=== PATIENT | female | born 1950 | race Caucasian/White ===

== ENCOUNTER 2019-04-30 21:38 | Inpatient (IN) | payer MEDICARE, BC ==
[~2019-04-30] VITALS: Ht 167.6 cm; Wt 134.3 kg
[2019-04-30] MEDS ORDERED: INDERAL 40 MG T40 MG PO (21:41)
[2019-04-30] MEDS ORDERED: LASIX40 MG PO (21:41)
[2019-04-30] MEDS ORDERED: CELEBREX200 MG PO (21:42)
[2019-04-30] MEDS ORDERED: NORVASC2.5 MG PO (21:42)
[2019-04-30 21:58] LABS: BASOPHILS 0.3 % (0-2); EOSINOPHILS 1.5 % (0-7); HEMATOCRIT 44.6 % (36.0-48.0); IMMATURE GRANULOCYTES 0.3 % (0-5); MCH 31.3 pg (26.0-34.0); MCHC 33.6 g/dL (31.0-37.0); MCV 93.1 fL (80.0-100.0); MEAN PLATELET VOLUME 9.5 fL (7.4-10.4); MONOCYTES 12.2 % (2-11); NEUTROPHILS 74.7 % (40-80); PLATELET COUNT 154 10x3/uL (130-400); RBC 4.79 10x6/uL (4.00-5.40); RDW 13.7 % (11.5-14.5); WBC 9.4 10x3/uL (4.8-10.8)
[2019-04-30 22:09] LABS: APTT 26.6 SECONDS (22.8-39.4); INR 1.14 (0.85-1.17); PROTIME 14.1 SECONDS (11.6-15.0)
[2019-04-30 22:11] LABS: D-DIMER-QUANTITATIVE 3.67 ug/mLFEU (0.20-0.54)
[2019-04-30 22:15] LABS: CALC OSMOLALITY 283 mosm/kg (275-300); CALCIUM 9.2 mg/dL (8.5-10.1); CARBON DIOXIDE 31.9 mmol/L (21.0-32.0); CHLORIDE - SERUM 105 mmol/L (98-107); CREATININE - SERUM 0.9 mg/dL (0.6-1.3); GLUCOSE 114 mg/dL (74-106); POTASSIUM - SERUM 4.2 mmol/L (3.5-5.1); SODIUM 141 mmol/L (136-145); UREA NITROGEN 18 mg/dL (7-18); eGFR NON AFRICAN AMERICAN 66 mL/min (90-120)
[2019-04-30 22:26] LABS: ALBUMIN 3.5 g/dL (3.4-5.0); ALKALINE PHOSPHATASE 73 U/L (46-116); ALT (SGPT) 21 U/L (10-68); AMYLASE - SERUM 44 U/L (25-115); BILIRUBIN - TOTAL 1.06 mg/dL (0.2-1.3); CREATINE KINASE 35 UL (21-215); LIPASE 179 U/L (73-393); PRO BNP 299 pg/mL (0-125)
[2019-04-30 22:27] VITALS: BP 140/61
[2019-04-30 22:27] LABS: TROPONIN-I < 0.017 ng/mL (0.000-0.060)
--- NOTE | 2019-04-30 22:30 | NUR ---
AFTER WALKING TO BATHROOM PT IS SOB AND O2 SAT IS 88% ON RA. RT AT BEDSIDE FOR TREATMENT.
--- NOTE | 2019-04-30 22:37 | NUR ---
PT TAKEN TO CT.
[2019-04-30 22:45] VITALS: BP 145/79
--- NOTE | 2019-04-30 22:56 | NUR ---
PT BACK FROM CT TOLERATED WELL.
[2019-04-30 23:00] VITALS: BP 146/66
[2019-04-30 23:04] LABS: APPEARANCE HAZY (CLEAR); BILIRUBIN NEGATIVE (NEGATIVE); COLOR YELLOW (YELLOW); GLUCOSE NEGATIVE (NEGATIVE); KETONE SMALL mg/dL (NEGATIVE); NITRITE NEGATIVE (NEGATIVE); PROTEIN NEGATIVE (NEGATIVE); SPECIFIC GRAVITY 1.015 (1.005-1.020); UROBILINOGEN NORMAL (NORMAL)
[2019-05-01] VITALS (8 sets, daily range): BP systolic 114–152; BP diastolic 47–72; BMI 47.9
--- NOTE | 2019-05-01 01:00 | NUR ---
RECEIVED FROM ER, PT IS A&OX4, IV-RFA-SL, MEDS AND HISTORY COMPLETE, PLACED ON TELEMTRY-SR, BED IS LOW, SRX2, CALL LIGHT IN REACH, WILL CONTINUE PLAN OF CARE
--- NOTE | 2019-05-01 07:39 | NUR ---
PT AWAKE AND ORIENTED. SON AT BEDSIDE. NO COMPLAINTS OR CONCERNS. STATES SHE'S IN NO PAIN AT THIS TIME. ALL QUESTIONS ANSWERED TO THE BEST OF MY ABILITY. CL IN REACH, SRX2.
--- NOTE | 2019-05-01 11:27 | NUR ---
I have reviewed this patient and I concur with the Shift Assessment completed by the Licensed Practical Nurse today this shift.
--- NOTE | 2019-05-01 18:30 | NUR ---
PT AWAKE AND ORIENTED, STATES SHE'S FEELING BETTER THAN YESTERDAY AND KNOWS THAT TOMORROW WILL BE BETTER THAN TODAY. NO COMPLAINTS OR CONCERNS VOICED AT THIS TIME, NO FAMILY PRESENT AT BEDSIDE. PT STATES HER DAUGHTER BROUGHT HER HOME CPAP WHICH SHE USES FOR SLEEP. PT STATES THAT SHE DID NOT SLEEP WELL LAST NIGHT AND IS HOPING TO GET ADAQUET REST THIS EVENING. CL IN REACH, SRX2.
--- NOTE | 2019-05-01 19:15 | NUR ---
RECEIVED REPORT, WILL ASSUME CARE OF PT, COMPLAINS OF PAIN, WILL GIVE MORPHINE ORDERED, ASKING IF LOVENOX HAS BEEN CHANGED TO 2100 AND 0900 SO PT WOULDNT BE WOKE UP, I WILL CHANGE PER PT REQUEST, ALSO ASKING FOR DRESSING BE PLACED ON ACOSTA TEAR TO RAC, PROVIDED, DAUGHTER AT BEDSIDE, BED IS LOW, SRX2, CALL LIGHT IN REACH, WILL CONTINUE PLAN OF CARE
[2019-05-02 04:38] VITALS: BP 128/44
--- NOTE | 2019-05-02 06:45 | NUR ---
REPORT RECEVIED. SHE IS ALERT. DENIES ANY CURRENT CHEST PAIN OR PAIN. O2 ON AT 2 L/M PER N/C. RESP EVEN WITHOUT LABOR. SALINE LOCK INTACT TO RIGHT FOREARM. DAUGHTER AT BEDSIDE. BED IS LOCKED AND IN LOWEST POSITION. CAREPLAN REVIEW DONE WITH SAFETY PRECAUTIONS IN PLACE.
[2019-05-02 09:25] VITALS: BP 137/46
--- NOTE | 2019-05-02 11:12 | EC ---
PATIENT:VALERIE LYNN DATE OF SERVICE: 05/01/19 SEX: F MEDICAL RECORD: [id number] DATE OF : [birth year] LOCATION:D.M2 D.210 AGE OF PATIENT: 68 ADMISSION DATE: 05/01/19 REFERRING PHYSICIAN: INTERPRETING PHYSICIAN: VERONICA HOOKER MD ECHOCARDIOGRAM REPORT ECHO CHARGES 4 ECHO COMPLETE Date: 05/01/19 CLINICAL DIAGNOSIS: SOB ECHOCARDIOGRAPHIC MEASUREMENTS (adult normal given) AC root (d.<3.7cm) 2.8 cm LV Septum d (<1.2 cm> 1.1 cm Valve Excursion 1.8 cm LV Septum (systole) 1.5 cm Left Atria (s.<4.0cm> 3.3 cm LVPW d(<1.2cm) 1.4 cm RV (d.<2.3cm) 3.6 cm LVPW (sytole) 1.5 cm LV diastole(<5.6CM) 5.2 cm MV E-F(>70mm/sec) cm LV systole 4.3 cm LVOT Diameter 1.6 cm MV exc.(>10mm) cm Est.ejection fraction (50-75%) % DOPPLER: LVIT cm/sec A 78 cm/sec E 81 cm/sec LA cm/sec RVSP 42.4 mmHg LVOT 180 cm/sec AOP1/2T m/s Asc. Ao 234 cm/sec RVOT 95 cm/sec RA cm/sec PA 159 cm/sec AV Gradient Peak 21.8 mmHg AV Mean 12.4 mmHg AV Area 1.4 cm MV Gradient Peak 3.7 mmHg MV Mean 2.3 mmHg MV Area cm COMMENTS: Content Strategist: Tico HERNANDEZ Flight Attendant Inflight Services: [address] Dr. [place] TAPE# PACS Pericardial Effusion Y DATE OF SERVICE: Adequate 2D, color flow, spectral Doppler, and M-mode. Borderline LVH. LV internal dimensions are normal. Wall motion is normal. EF is greater than or equal to 55%. Aortic valve sclerosis without stenosis by Doppler interrogation. Left atrium is normal at 3.3 cm. Mitral valve shows no prolapse. Trace TR. Right-sided chambers appear normal. There is mild MR. Note is made of qibun-bq-fctxzxmr pericardial effusion of no hemodynamic significance. ECHOCARDIOGRAM REPORT [id number] VALERIE LYNN TRANSINT:[id number] Voice Confirmation ID: [id number] DOCUMENT ID: [id number] VERONICA HOOKER MD at 1112 CC: [id number] DICTATION DATE: 05/02/19832 EARLY CHILDHOOD EDUCATION INSTRUCTOR: 05/02/19 1025 ADM IN [place] [id number] [place] [address]
[2019-05-02 12:00] VITALS: BP 130/50
[2019-05-02 14:17] VITALS: BMI 47.7
--- NOTE | 2019-05-02 14:55 | MORECARE ---
CASE MANAGEMENT DISCHARGE SUMMARY PATIENT: VALERIE LYNN UNIT: [id number] ADM DATE: 04/30/19 AGE: 68 : 48 SEX: F ROOM/BED: D.6585 AUTHOR: SVEN LACEY PHYSICIAN: REFERRING PHYSICIAN: KORTNEY STRANGE MD DATE OF SERVICE: 05/02/19 Discharge Plan Patient Name: VALERIE LYNN Facility: [facility]:[place] : 1950 Planned Disposition: Home or Self Care Anticipated Discharge Date: Discharge Date: Expected LOS: Initial Reviewer: [email or web address] Initial Review Date: 05/02/2019 Generated: 05/02/19 3:55 pm Comments DCP- Discharge Planning Updated by [email or web address]: Mone Calhoun on 05/02/19 1:[address] Patient Name: VALERIE LYNN Admission Status: ER Accout number: [id number] Admission Date: 04-30-2019 : 1950 Admission Diagnosis: Attending: KORTNEY STRANGE Current LOS: 2 Anticipated DC Date: Planned Disposition: Home or Self Care Primary Insurance: MEDICARE A & B Discharge Planning Comments: CM MET WITH PATIENT TO DISCUSS DC PLANNING/NEEDS AFTER OBTAINING VERBAL CONSENT. PLANS TO DC TO HOME. STATES DOCTOR MENTIONED SOMETHING ABOUT HAVING HER CPAP CHECKED. I WILL TALK TO RT ABOUT THIS. DENIES NEED FOR HH, REHAB OR EQUIPMENT AT THIS TIME. CM WILL FOLLOW AND ASSIST. Financial Adviser: Mone Calhoun DCPIA - Discharge Planning Initial Assessment Updated by [email or web address]: Mone Calhoun on 05/02/19 2:49 pm * Is the patient Alert and Oriented? Yes * PCP LEEROY * Pharmacy [facility] * Preadmission Environment Home Alone * ADLs Independent * Equipment CPAP * List name and contact numbers for known caregivers / representatives who currently or will assist patient after discharge: VIC, DAUGHTER * Community resources currently utilized None * Additional services required to return to the preadmission environment? No * Can the patient safely return to the preadmission environment? Yes * Has this patient been hospitalized within the prior 30 days at any hospital? No Patient Name: VALERIE LYNN Page [phone] at 1455 All edits/amendments must be made on the electronic document DICTATION DATE: 05/02/191454 MANAGER LIFE SCIENCES: ODESSA 05/02/191454 RPT#: [id number] DC DATE: STATUS: ADM IN [facility] [address] [place] [address] END OF REPORT
[2019-05-02 16:00] VITALS: BP 137/61
[2019-05-02 20:48] VITALS: BP 110/77
--- NOTE | 2019-05-02 21:45 | NUR ---
REPORT RECIEVED AND ROUNDING COMPLETE. PATIENT LAYING IN BED IN LOW FOWLERS. PATIENT'S DAUGHTER AT BEDSIDE. PATIENT STATES "PLEASE DONT COME IN MY ROOM UNLESS I CALL YOU I WOULD LIKE TO GET SOME SLEEP TONIGHT" ASSESSMENT COMPLETE. PATIENT SHOWING NO S/SX OF DISTRESS AT THIS TIME. PATIENT HAS A RIGHT FOREARM PIV THAT IS SALINE LOCKED AT THIS TIME. PATINET IS A&O X4. PATIENT IS HAS 02 AT 2L VIA NASAL CANNULA. PATIENT HAS A C-PAP TO WEAR AT NIGHT BUT STATES SHE ISNT MESSING WITH IT TONIGHT. PATIENT STATES SHE HAS NO NEEDS A THIS TIME. CALL LIGHT WITHIN REACH AND BED IN LOWEST LOCKED POSITION.
[2019-05-03 04:30] VITALS: BP 134/55
[2019-05-03 05:39] LABS: BASOPHILS 0.1 % (0-2); EOSINOPHILS 0 % (0-7); HEMATOCRIT 38.3 % (36.0-48.0); IMMATURE GRANULOCYTES 0.3 % (0-5); LYMPHOCYTES 8.9 % (15-50); MCH 30.8 pg (26.0-34.0); MCHC 33.9 g/dL (31.0-37.0); MCV 90.8 fL (80.0-100.0); MEAN PLATELET VOLUME 10.1 fL (7.4-10.4); MONOCYTES 6.8 % (2-11); NEUTROPHILS 83.9 % (40-80); PLATELET COUNT 184 10x3/uL (130-400); RBC 4.22 10x6/uL (4.00-5.40); RDW 13.1 % (11.5-14.5); WBC 10.8 10x3/uL (4.8-10.8)
[2019-05-03 06:21] LABS: ANION GAP 10.3 mmol/L (8-16); CALCIUM 8.7 mg/dL (8.5-10.1); CREATININE - SERUM 0.9 mg/dL (0.6-1.3); POTASSIUM - SERUM 3.3 mmol/L (3.5-5.1)
--- NOTE | 2019-05-03 06:55 | NUR ---
REPORT RECEIVED. SHE IS ALERT ABLE TO VOICE NEEDS DAUGHTER AT BEDSIDE. RESP EVEN WITHOUT LABOR, O2 IS OFF. SHE OFFERS NO C/O AT THIS TIME. BED IN LOWEST POSITION AND LOCKED. CAREPLAN REVIEW DONE WITH SAFETY PRECAUTIONS IN PLACE. CL IN REACH.
[2019-05-03 08:00] VITALS: BP 129/57
[2019-05-03 10:10] LABS: ACLA - IGG AB <9 GPL U/mL (0-14); ACLA - IGM AB <9 MPL U/mL (0-12)
[2019-05-03] MEDS ORDERED: COLCRYS0.6 MG PO (11:57)
[2019-05-03] MEDS ORDERED: XARELTO15 MG PO (11:58)
[2019-05-03 12:00] VITALS: BP 128/52
--- NOTE | 2019-05-03 13:06 | NUR ---
UPON ADMIT, PATIENT STATES TO HAVING A FLU SHOT THIS YEAR.
--- NOTE | 2019-05-03 13:29 | MORECARE ---
CASE MANAGEMENT DISCHARGE SUMMARY PATIENT: VALERIE LYNN UNIT: [id number] ADM DATE: 04/30/19 AGE: 68 : [birth year] SEX: F ROOM/BED: D.4405 AUTHOR: SVEN LACEY PHYSICIAN: REFERRING PHYSICIAN: KORTNEY STRANGE MD DATE OF SERVICE: 05/03/19 Discharge Plan Patient Name: VALERIE LYNN Facility: [facility]:[place] : 1950 Planned Disposition: Home or Self Care Anticipated Discharge Date: Discharge Date: Expected LOS: Initial Reviewer: [email or web address] Initial Review Date: 05/02/2019 Generated: 05/03/19 2:29 pm Comments DCP- Discharge Planning Updated by [email or web address]: Slick Douglas on 05/03/19 12:[address] Patient Name: VALERIE LYNN Encounter No: [id number] : 1950 Primary Insurance: MEDICARE A & B Anticipated DC Date: Planned Disposition: Home or Self Care DCP follow-up note: CM MET WITH PT IN ROOM TO DISCUSS DISCHARGE NEEDS AND PLANNING. CM DISCUSSED AVAILABILITY OF HOME HEALTH, REHAB SERVICES AND MEDICAL EQUIPMENT. PT DENIES DISCHARGE NEEDS. FAMILY HERE TO TRANSPORT HOME AT DISCHARGE TODAY. IMPORTANT MESSAGE FROM MEDICARE PROVIDED AND EXPLAINED. SAXOPHONE ASSEMBLER NURSE NOTIFIED. LATASHA Calvo DCP- Discharge Planning Updated by [email or web address]: Mone Calhoun on 05/02/19 1:[address] Patient Name: VALERIE LYNN Admission Status: ER Accout number: [id number] Admission Date: 04-30-2019 : 1950 Admission Diagnosis: Attending: KORTNEY STRANGE Current LOS: 2 Anticipated DC Date: Planned Disposition: Home or Self Care Primary Insurance: MEDICARE A & B Discharge Planning Comments: CM MET WITH PATIENT TO DISCUSS DC PLANNING/NEEDS AFTER OBTAINING VERBAL CONSENT. PLANS TO DC TO HOME. STATES DOCTOR MENTIONED SOMETHING ABOUT HAVING HER CPAP CHECKED. I WILL TALK TO RT ABOUT THIS. DENIES NEED FOR HH, REHAB OR EQUIPMENT AT THIS TIME. CM WILL FOLLOW AND ASSIST. Rippler: Mone Calhoun DCPIA - Discharge Planning Initial Assessment Updated by [email or web address]: Mone Calhoun on 05/02/19 2:49 pm * Is the patient Alert and Oriented? Yes * PCP [facility] * [facility] * Preadmission Environment Home Alone * ADLs Independent * Equipment CPAP * List name and contact numbers for known caregivers / representatives who currently or will assist patient after discharge: VIC, ALESSANDRO * Community resources currently utilized None * Additional services required to return to the preadmission environment? No * Can the patient safely return to the preadmission environment? Yes * Has this patient been hospitalized within the prior 30 days at any hospital? No Coverage Notice Reviewer: [email or web address] Gurwinder Douglas Notice Issued Date-Time: 05/03/2019 13:15 Notice Type: IM Discharge Notice Notice Delivered To: Patient Relationship to Patient: [employer] Salesperson Name: Delivery Method: HAND - Hand Delivered [place] Days: Prior Verbal Notification: Recipient Understood Notice: Yes Recipient Signature: Yes Med Rec Note Co-signed by Attending: Coverage Notice Comment: Last DP export: 05/02/19 1:55 Patient Name: VALERIE LYNN Page 19756 at 1329 All edits/amendments must be made on the electronic document DICTATION DATE: 05/03/19 1329 ASSOCIATE DIRECTOR FINANCIAL AID: ODESSA 05/03/19 1329 RPT#: [id number] DC DATE: STATUS: ADM IN [facility] [address] [place] [address] END OF REPORT
--- NOTE | 2019-05-03 13:54 | NUR ---
DISCHARGE PAPERS EXPLAINED TO HER IN DETAIL WITH DAUGHTER PRESENT. SALINE LOCK D/C WITH CATH TIP INTACT. PRESSURE HELD TO SITE. TELEMETRY REMOVED AND RETURNED TO SECURITY MANAGEMENT SPECIALIST. SHE OFFERS NO C/O. SHE IS IN STABLE CONDITION. TRANSPORTED BY W/C TO [facility]
--- NOTE | 2019-05-04 06:55 | MORECARE ---
CASE MANAGEMENT DISCHARGE SUMMARY PATIENT: VALERIE LYNN UNIT: [id number] ADM DATE: 04/30/19 AGE: 68 : 48 SEX: F ROOM/BED: D.2019 AUTHOR: SVEN LACEY PHYSICIAN: REFERRING PHYSICIAN: KORTNEY STRANGE MD DATE OF SERVICE: 05/04/19 Discharge Plan Patient Name: VALERIE LYNN Facility: [facility]:[place] : 1950 Planned Disposition: Home or Self Care Anticipated Discharge Date: 05/03/19 Discharge Date: 05/03/2019 Expected LOS: 3 Initial Reviewer: [id number] Initial Review Date: 05/02/2019 Generated: 05/04/19 7:55 am Comments DCP- Discharge Planning Updated by [email or web address]: Slick Douglas on 05/03/19 12:[address] Patient Name: VALERIE LYNN Encounter No: [id number] : 1950 Primary Insurance: MEDICARE A & B Anticipated DC Date: Planned Disposition: Home or Self Care DCP follow-up note: CM MET WITH PT IN ROOM TO DISCUSS DISCHARGE NEEDS AND PLANNING. CM DISCUSSED AVAILABILITY OF HOME HEALTH, REHAB SERVICES AND MEDICAL EQUIPMENT. PT DENIES DISCHARGE NEEDS. FAMILY HERE TO TRANSPORT HOME AT DISCHARGE TODAY. IMPORTANT MESSAGE FROM MEDICARE PROVIDED AND EXPLAINED. FUNDING SPECIALIST NURSE NOTIFIED. Slick Douglas, CASE LEXIE DCP- Discharge Planning Updated by [email or web address]: Mone Calhoun on 05/02/19 1:[address] Patient Name: VALERIE LYNN Admission Status: ER Accout number: [id number] Admission Date: 04-30-2019 : 1950 Admission Diagnosis: Attending: KORTNEY STRANGE Current LOS: 2 Anticipated DC Date: Planned Disposition: Home or Self Care Primary Insurance: MEDICARE A & B Discharge Planning Comments: CM MET WITH PATIENT TO DISCUSS DC PLANNING/NEEDS AFTER OBTAINING VERBAL CONSENT. PLANS TO DC TO HOME. STATES DOCTOR MENTIONED SOMETHING ABOUT HAVING HER CPAP CHECKED. I WILL TALK TO RT ABOUT THIS. DENIES NEED FOR HH, REHAB OR EQUIPMENT AT THIS TIME. CM WILL FOLLOW AND ASSIST. Purchasing Manager: Mone Calhoun DCPIA - Discharge Planning Initial Assessment Updated by [email or web address]: Mone Calhoun on 05/02/19 2:49 pm * Is the patient Alert and Oriented? Yes * PCP LEEROY * Pharmacy [facility] * Preadmission Environment Home Alone * ADLs Independent * Equipment CPAP * List name and contact numbers for known caregivers / representatives who currently or will assist patient after discharge: VIC, ALESSANDRO * Community resources currently utilized None * Additional services required to return to the preadmission environment? No * Can the patient safely return to the preadmission environment? Yes * Has this patient been hospitalized within the prior 30 days at any hospital? No Coverage Notice Reviewer: [email or web address] Gurwinder Douglas Notice Issued Date-Time: 05/03/2019 13:15 Notice Type: IM Discharge Notice Notice Delivered To: Patient Relationship to Patient: Sheet Tester Name: Delivery Method: HAND - Hand Delivered [place] Days: Prior Verbal Notification: Recipient Understood Notice: Yes Recipient Signature: Yes Med Rec Note Co-signed by Attending: Coverage Notice Comment: Last DP export: 05/03/19 12:29 Patient Name: VALERIE LYNN Page [phone] at 0655 All edits/amendments must be made on the electronic document DICTATION DATE: 05/04/19654 NIGHT CLERK AUDITOR: ODESSA 05/04/19654 RPT#: [id number] DC DATE:05/03/19 STATUS: DIS IN [facility] [address] [place] [address] END OF REPORT
[2019-05-04 12:09] LABS: CA125 13.1 U/mL (0.0-38.1); CEA 1.8 ng/mL (0.0-4.7)
[2019-05-05 03:07] LABS: PROTEIN C - ANTIGEN 78 % (60-150); PROTEIN C - FUNCTIONAL 88 % (73-180)
[2019-05-05 07:14] LABS: HEXAGONAL PHASE PHOS 0 sec (0-11); LUPUS - INTERPRETATION Comment: (()); LUPUS - dRVVT 52.1 sec (0.0-47.0); PTT-LA 56.7 sec (0.0-51.9); PTT-LA MIX 56.6 sec (0.0-48.9)
[2019-05-05 13:10] LABS: PROTEIN S - FREE 142 % (57-157); PROTEIN S - FUNCTIONAL 96 % (63-140); PROTEIN S - TOTAL 135 % (60-150)
[2019-05-10 19:08] LABS: FACTOR II DNA ANALYSIS Negative (())
[2019-05-16 11:56] VITALS: Ht 167.6 cm; Wt 134.3 kg
== END 2019-05-03 13:54 | disposition home or self-care (01) | DRG 175 ==
LOC: D.ER 21:38 → D.M2 23:54 → D.ER 05-01 00:21 → D.M2 05-01 00:21
PROVIDERS: Emergency Medicine; Family Medicine; Internal Medicine Hematology & Oncology; ADMIT Internal Medicine Nephrology; ATTEND Internal Medicine Nephrology
DX: I26.99 Other pulmonary embolism without acute cor pulmonale (principal); J96.01 Acute respiratory failure with hypoxia; Z68.42 Body mass index [BMI] 45.0-49.9, adult; I31.3 Pericardial effusion (noninflammatory); E66.01 Morbid (severe) obesity due to excess calories; I48.91 Unspecified atrial fibrillation; I11.0 Hypertensive heart disease with heart failure; I50.9 Heart failure, unspecified

== ENCOUNTER 2019-05-17 08:00 | Outpatient (CLI) | payer MEDICARE, BC ==
[2019-05-16 11:56] VITALS: BMI 47.7
[~2019-05-17 08:00] MED LIST: CELEBREX200 MG PO; COLCRYS0.6 MG PO; INDERAL 40 MG T40 MG PO; LASIX40 MG PO; NORVASC2.5 MG PO; XARELTO15 MG PO
== END 2019-05-17 08:01 | disposition home or self-care (01) ==
LOC: D.LAB
PROVIDERS: ATTEND Internal Medicine Hematology & Oncology
DX: R94.39 Abnormal result of other cardiovascular function study (principal)

== ENCOUNTER → 2019-06-07 13:21 | Outpatient (CLI) | payer MEDICARE, BC ==
[2019-05-16 11:56] VITALS: BMI 47.7
== END | disposition home or self-care (01) ==
LOC: D.CT 05-26 10:30
PROVIDERS: ATTEND Family Medicine
DX: R94.39 Abnormal result of other cardiovascular function study (principal)

== ENCOUNTER → 2020-01-11 19:00 | Outpatient (CLI) | payer MEDICARE, BC ==
[2019-05-16 11:56] VITALS: BMI 47.7
== END | disposition home or self-care (01) ==
LOC: D.LABREF 19:00
PROVIDERS: ATTEND Orthopaedic Surgery
DX: M16.11 Unilateral primary osteoarthritis, right hip (principal)

== ENCOUNTER 2020-01-12 09:38 | Inpatient (IN) | payer MEDICARE, BC ==
[~2020-01-12] VITALS: Ht 170.2 cm; Wt 134.1 kg
--- NOTE | ~2020-01-12 | OP ---
PATIENT NAME: VALERIE LYNN MEDICAL RECORD: [id number] :[birth year] LOCATION:D. D.1213 ADMISSION DATE:02/08/20 SURGEON: PETER BAEZ MD DATE OF OPERATION: 02/08/2020 PREOPERATIVE DIAGNOSIS: Osteoarthritis, right hip. POSTOPERATIVE DIAGNOSIS: Osteoarthritis, right hip. PROCEDURE PERFORMED: Right total hip arthroplasty. INDICATIONS FOR PROCEDURE: Ms. Lynn is a 69-year-old female with a history of right hip pain for some time now. She has a history of arthritis and has been attempting to deal with this conservatively. Pain is worsening and limiting her mobility. She has elected to proceed with surgery for a right total hip arthroplasty. Risks, benefits, and alternatives of surgery were discussed with the patient and consent was obtained. DESCRIPTION OF PROCEDURE: The patient was met in the holding area where her identity and confirmation of procedure was performed. The right lower extremity was marked. She was taken to the operating room where she was placed supine on the operating table and anesthesia was administered. She was then positioned on the [place] table. Extremities were positioned and padded appropriately. Right lower extremity was prepped and draped in a sterile fashion. The patient received preoperative antibiotics as well as TXA. A time-out was performed before initiation of the case. Anterior Crowley-Robbi approach was utilized for exposure. We incised through the skin and subcutaneous tissues down to the tensor fascia. Tensor fascia was then split longitudinally and the interval between tensor and sartorius/rectus was identified. We continued our dissection deep to identify the lateral circumflex vessels. These were tagged and cauterized. I dissected down to the anterior capsule, placed retractors around the superior and inferior femoral neck. Retractor was also placed over the anterior brim of the acetabulum. Anterior capsule was then excised. Retractors were placed around the femoral neck. Femoral neck was cut and the head was removed with the corkscrew device. Retractors were repositioned around the acetabulum. Tissue from around the acetabulum and at the floor of the acetabulum was debrided. The head measured a size 50. We began reaming with a size 43, reaming up sequentially to a size 53. We placed a 54 mm cup. We had to repeat our reamings a couple of times in order to add some depth to the socket and clear out any tissue. We were then able to get a good secure fit for a cup. The center cap was placed and the alignment was confirmed under fluoroscopy. Liner was then placed and tapped into position. We then turned our attention to the femur. The leg was externally rotated. Retractors were placed in the medial calcar and over the greater trochanter. The leg was then taken into extension and adduction. A hook was placed around the proximal femur and the proximal femur was elevated until we had good exposure. Tissue was released at the shoulder as we were doing this. Once exposed, we began preparation of the proximal femur using a cookie cutter followed by canal finder. We then began broaching starting with a size [address] up to a size 12. A high-offset neck was used and a 36 mm head. Hip was trialed and noted to have good fit and stability. It was again dislocated and repositioned. Trial components were removed and our final implants were placed. Femur was placed and tapped into position. The head was then securely tapped on and the leg was again reduced. [place] to have good stability and x-rays show good alignment of the components with near equal leg lengths. The wound was OPERATIVE REPORT [id number] VALERIE LYNN irrigated thoroughly with saline. Joint solution was injected around the capsule, proximal femur. Tensor fascia was then closed with a running Vicryl suture. Subcutaneous tissue was irrigated thoroughly with saline and remainder of the joint solution was injected. A drain was placed extrafascially. Tissue was closed over the drain, subcutaneous tissue and skin closure was performed by Dominic clemons. Subcutaneous tissue was closed with 2-0 Vicryl and the skin was closed with a running Monocryl. A Prineo dressing was then applied to the wound. This was covered with a sterile dressing and a drain was securely tightened with the Ioban. The patient was turned back over to anesthesia where she was awakened, extubated, and taken to recovery room in stable condition. POSTOPERATIVE PLAN: The patient is going to be admitted to the floor for routine postoperative care. She received 24 hours' postoperative antibiotics and returned, be restarted on her DVT therapy tomorrow. Physical therapy will be consulted to assist with mobilization, weightbearing as tolerated on the right lower extremity. PLAN: Home with home health later this week. ANESTHESIA: General. COMPLICATIONS: None. ESTIMATED BLOOD LOSS: 1500 mL. NTS:[id number] Voice Confirmation ID: [id number] DOCUMENT ID: [id number] PETER BAEZ MD CC: [id number] DICTATION DATE: 02/08/20 1247 DESIGN QUALITY ENGINEER: 02/09/20 0109 ADM IN [place] [id number] [place] [id number]
[2020-01-31] MEDS ORDERED: LODINE500 MG PO (10:03)
[2020-02-01 11:31] LABS: ANION GAP 9.8 mmol/L (8-16); CALCIUM 9.5 mg/dL (8.5-10.1); CARBON DIOXIDE 32.9 mmol/L (21.0-32.0); POTASSIUM - SERUM 3.7 mmol/L (3.5-5.1)
[2020-02-01 11:47] LABS: BILIRUBIN NEGATIVE (NEGATIVE); GLUCOSE NEGATIVE (NEGATIVE); KETONE NEGATIVE (NEGATIVE); NITRITE NEGATIVE (NEGATIVE)
[2020-02-01 11:49] LABS: BASOPHILS 0.6 % (0-2); EOSINOPHILS 3.8 % (0-7); EPITHELIAL CELLS 0-5 /hpf (0-5); HEMOGLOBIN 14.8 g/dL (12-16); IMMATURE GRANULOCYTES 0.2 % (0-5); MCH 31.5 pg (26.0-34.0); MCHC 33.6 g/dL (31.0-37.0); MCV 93.6 fL (80.0-100.0); MEAN PLATELET VOLUME 9.4 fL (7.4-10.4); MONOCYTES 9.5 % (2-11); NEUTROPHILS 70.9 % (40-80); PLATELET COUNT 194 10x3/uL (130-400); RDW 13.7 % (11.5-14.5); RED CELLS - URINE 0-5 /hpf (0-5); WBC 6.3 10x3/uL (4.8-10.8)
[2020-02-01 11:50] LABS: BACTERIA MODERATE /hpf (NEGATIVE)
[2020-02-01 12:32] LABS: INR 1.52 (0.85-1.17); PROTIME 18.2 SECONDS (11.6-15.0)
[2020-02-08 07:32] VITALS: BMI 46.6
--- NOTE | 2020-02-08 12:18 | NUR ---
THROUGH TRAFFIC KEPT TO A MINIMUM. JOINT COCKTAIL ADMINISTERED TO BACK FIELD NS 50ML, MORPHINE 10MG/ML, EPINEPHRINE0.5MG, ROPIVACAIN .75% 37ML, KETOROLAC 30MG.
--- NOTE | 2020-02-08 14:00 | NUR ---
DAVOL DRAIN EMPTIED 60ML
[2020-02-08 14:09] VITALS: BP 110/53
[2020-02-08 14:30] VITALS: Ht 170.2 cm; Wt 134.1 kg
[2020-02-08] MEDS ORDERED: XARELTO20 MG PO (16:28)
[2020-02-08 20:00] VITALS: BP 114/53
--- NOTE | 2020-02-08 20:00 | NUR ---
ALERT RESTING IN BED DENIES PAIN OR NEEDS AT THIS TIME, DRESSING TO RIGHT HIP INCISION C/D/I, DEVOL DRAIN INTACT COMPRESSED, SEE SHIFT ASSESSMENT, CALL LIGHT IN REACH
[2020-02-09] VITALS (8 sets, daily range): BP systolic 90–124; BP diastolic 37–88
[2020-02-09 06:18] LABS: HEMATOCRIT 29.2 % (36.0-48.0); HEMOGLOBIN 9.7 g/dL (12-16); MCH 30.6 pg (26.0-34.0); MCHC 33.2 g/dL (31.0-37.0); MCV 92.1 fL (80.0-100.0); MEAN PLATELET VOLUME 9.5 fL (7.4-10.4); RBC 3.17 10x6/uL (4.00-5.40); RDW 13.9 % (11.5-14.5); WBC 8.8 10x3/uL (4.8-10.8)
--- NOTE | 2020-02-09 07:20 | NUR ---
PT IS RESTING IN BED WITH EYES OPEN. RESPIRATIONS ARE EVEN AND UNLABORED. PT IS AAOX 4. SCDS ARE ON BLE. BILATERAL PEDAL PULSES ARE PALP. DRESSING TO RIGHT HIP NOTED AND CDI. PT DENIES PRESENCE OF NUMBNESS/TINGLING. PT DENIES PRESENCE OF PAIN/N/V AT THIS TIME. PT DAUGHTER AT BEDSIDE. PIV TO LEFT FA INFUSING PER ORDER WITHOUT DIFFICULTY. BED IS IN THE LOWEST POSITION. CALL LIGHT AND BEDSIDE TABLE ARE WITHIN REACH. SIDE RAILS X 2. PT DENIES FURTHER NEEDS. WILL CONT TO MONITOR.
--- NOTE | 2020-02-09 11:00 | NUR ---
PT REPORTS PAIN TO RIGHT HIP RATED 5/10 AND REQUESTING MEDICATION FOR PAIN RELIEF. PT BP AT THIS TIME IS 100/37 AND EDUCATED ON PAIN MEDICATION. PT VERBALIZES UNDERSTANDING. OMAR CHOWDARY NOTIFIED OF PT BP AND PAIN LEVEL. WILL AWAIT FURTHER ORDERS.
[2020-02-09 16:09] LABS: BASOPHILS 0.1 % (0-2); EOSINOPHILS 0.6 % (0-7); HEMATOCRIT 26.1 % (36.0-48.0); HEMOGLOBIN 8.7 g/dL (12-16); IMMATURE GRANULOCYTES 0.4 % (0-5); MCH 30.7 pg (26.0-34.0); MCHC 33.3 g/dL (31.0-37.0); MCV 92.2 fL (80.0-100.0); MEAN PLATELET VOLUME 8.9 fL (7.4-10.4); MONOCYTES 7.6 % (2-11); NEUTROPHILS 83.3 % (40-80); PLATELET COUNT 114 10x3/uL (130-400); RBC 2.83 10x6/uL (4.00-5.40); WBC 7.3 10x3/uL (4.8-10.8)
[2020-02-09 16:32] LABS: ALBUMIN 2.6 g/dL (3.4-5.0); ANION GAP 5.5 mmol/L (8-16); BILIRUBIN - TOTAL 0.58 mg/dL (0.2-1.3); CALCIUM 7.4 mg/dL (8.5-10.1); CARBON DIOXIDE 31.4 mmol/L (21.0-32.0); CREATININE - SERUM 0.9 mg/dL (0.6-1.3); POTASSIUM - SERUM 3.9 mmol/L (3.5-5.1); PROTEIN - SERUM 5.4 g/dL (6.4-8.2)
--- NOTE | 2020-02-09 19:00 | NUR ---
RECEIVED REPORT ON PT, WILL CONT POC. PT ALERT AND ORIENTED, UP IN BED WATCHING TV WITH DAUGHTER AT BEDSIDE. NO S/S OF DISTRESS OBSERVED. RR EVEN AND UNLABORED ON ROOM AIR. PT REPORTS PAIN 02/12. PT DENIES NEEDS AT THIS TIME. CALL LIGHT IN REACH. BED LOCKED AND LOWERED. WILL CONTINUE TO MONITOR.
--- NOTE | 2020-02-09 22:45 | NUR ---
WHILE REMOVING PTS IV, PT REPORTED FEELING LIGHT HEADED. BP 109/39 [address] PT ON 2L OF O2 VIA NC. WILL CONTINUE TO MONITOR.
[2020-02-10 05:45] VITALS: BP 107/41
[2020-02-10 07:11] LABS: BASOPHILS 0.3 % (0-2); EOSINOPHILS 1.2 % (0-7); HEMATOCRIT 24.3 % (36.0-48.0); HEMOGLOBIN 8.1 g/dL (12-16); IMMATURE GRANULOCYTES 0.3 % (0-5); LYMPHOCYTES 12.7 % (15-50); MCH 30.8 pg (26.0-34.0); MCHC 33.3 g/dL (31.0-37.0); MCV 92.4 fL (80.0-100.0); MONOCYTES 10.5 % (2-11); PLATELET COUNT 109 10x3/uL (130-400); RBC 2.63 10x6/uL (4.00-5.40); RDW 14.3 % (11.5-14.5); WBC 5.9 10x3/uL (4.8-10.8)
--- NOTE | 2020-02-10 07:28 | NUR ---
DAUGHTER VIC ASSISTED PT TO BATHROOM. TRANSFERS WELL. REQUESTS PADS FOR UNDERWARE. STATES SHE DOESN'T NEED O2 NOW BECAUSE SHE HAS SLEEP APNEA. I CHECKED HER OXYGEN SAT AND IT WAS 98 % THIS AM. PT WAS DOING HER INCENTIVE SPIROMETER. CL IN REACH. WCTM
[2020-02-10 07:45] LABS: ALBUMIN 2.4 g/dL (3.4-5.0); ANION GAP 9.4 mmol/L (8-16); BILIRUBIN - TOTAL 0.55 mg/dL (0.2-1.3); CALCIUM 7.3 mg/dL (8.5-10.1); CARBON DIOXIDE 29.1 mmol/L (21.0-32.0); CREATININE - SERUM 0.9 mg/dL (0.6-1.3); POTASSIUM - SERUM 3.5 mmol/L (3.5-5.1); PROTEIN - SERUM 5.4 g/dL (6.4-8.2)
[2020-02-10 08:03] VITALS: BP 122/45
--- NOTE | 2020-02-10 08:14 | MORECARE ---
CASE MANAGEMENT DISCHARGE SUMMARY PATIENT: VALERIE LYNN UNIT: [id number] ADM DATE: 02/08/20 AGE: 69 : 48 SEX: F ROOM/BED: D.1213 AUTHOR: ABHIJIT,DOC PHYSICIAN: REFERRING PHYSICIAN: PETER BAEZ MD DATE OF SERVICE: 02/10/20 Discharge Plan Patient Name: VALERIE LYNN Facility: [facility]:[place] : 1950 Planned Disposition: Home with Home Health Anticipated Discharge Date: Discharge Date: Expected LOS: Initial Reviewer: [email or web address] Initial Review Date: 02/08/2020 Generated: 02/10/20 9:14 am Comments DCP- Discharge Planning Updated by [email or web address]: Dixie López on 02/10/20 7:[address] Patient Name: VALERIE LYNN Admission Status: Elective Accout number: [id number] Admission Date: 02-08-2020 : 1950 Admission Diagnosis: Attending: EDELMIRA Current LOS: 2 Anticipated DC Date: Planned Disposition: Home with Home Health Primary Insurance: MEDICARE A & B Discharge Planning Comments: CM met with patient to complete initial dc planning assessment. CM educated patient on the CM role and verbal consent given by patient to complete assessment. Patient lives at home by herself where she is independent with her care. At discharge patient plans to return home and feels this is a safe discharge. Her daughter will be staying with her while she recovers. CM discussed availability of home health, rehab services, and medical equipment. BRETT with [facility] . Patient has a walker in her car, wears a CPAP, and has a BSC at home. I will send the referral to [facility]. Patient denied known discharge needs at this time. CM will continue to follow and will assist as needed with dc plans/needs. Qa Analyst: Dixie López DCPIA - Discharge Planning Initial Assessment Updated by [email or web address]: Dixie López on 02/10/20 8:12 am * Is the patient Alert and Oriented? Yes * How many steps to enter\exit or inside your home? * PCP LEEROY * Pharmacy [facility] * Preadmission Environment Home Alone * ADLs Independent * Equipment Bedside Commode CPAP Walker * List name and contact numbers for known caregivers / representatives who currently or will assist patient after discharge: OLINDA (DAUGHTER) [phone] * Verbal permission to speak to the caregivers and representatives has been obtained from the patient. Yes * Community resources currently utilized None * Additional services required to return to the preadmission environment? Yes * Can the patient safely return to the preadmission environment? Yes * Has this patient been hospitalized within the prior 30 days at any hospital? No Patient Name: VALERIE LYNN Page [phone] at 0814 All edits/amendments must be made on the electronic document DICTATION DATE: 02/10/20813 HOOK LOADER: ODESSA 02/10/20813 RPT#: [id number] DC DATE: STATUS: ADM IN [facility] [address] [place] [address] END OF REPORT
--- NOTE | 2020-02-10 08:27 | MORECARE ---
CASE MANAGEMENT DISCHARGE SUMMARY PATIENT: VALERIE LYNN UNIT: [id number] ADM DATE: 02/08/20 AGE: 69 : 48 SEX: F ROOM/BED: D.1213 AUTHOR: ABHIJIT,DOC PHYSICIAN: REFERRING PHYSICIAN: PETER BAEZ MD DATE OF SERVICE: 02/10/20 Discharge Plan Patient Name: VALERIE LYNN Facility: [facility]:[place] : 1950 Planned Disposition: Home with Home Health Anticipated Discharge Date: Discharge Date: Expected LOS: Initial Reviewer: [email or web address] Initial Review Date: 02/08/2020 Generated: 02/10/20 9:26 am Comments DCP- Discharge Planning Updated by [email or web address]: Dixie López on 02/10/20 7:[address] Patient Name: VALERIE LYNN Admission Status: Elective Accout number: [id number] Admission Date: 02-08-2020 : 1950 Admission Diagnosis: Attending: EDELMIRA Current LOS: 2 Anticipated DC Date: Planned Disposition: Home with Home Health Primary Insurance: MEDICARE A & B Discharge Planning Comments: CM met with patient to complete initial dc planning assessment. CM educated patient on the CM role and verbal consent given by patient to complete assessment. Patient lives at home by herself where she is independent with her care. At discharge patient plans to return home and feels this is a safe discharge. Her daughter will be staying with her while she recovers. CM discussed availability of home health, rehab services, and medical equipment. GABRIEL with [facility] . Patient has a walker in her car, wears a CPAP, and has a BSC at home. I will send the referral to [facility]. Patient denied known discharge needs at this time. CM will continue to follow and will assist as needed with dc plans/needs. Adhesive Bandage Making Operator: Dixie López DCPIA - Discharge Planning Initial Assessment Updated by [email or web address]: Dixie López on 02/10/20 8:12 am * Is the patient Alert and Oriented? Yes * How many steps to enter\exit or inside your home? * PCP [facility] * Pharmacy [facility] * Preadmission Environment Home Alone * ADLs Independent * Equipment Bedside Commode CPAP Walker * List name and contact numbers for known caregivers / representatives who currently or will assist patient after discharge: OLINDA (DAUGHTER) [phone] * Verbal permission to speak to the caregivers and representatives has been obtained from the patient. Yes * Community resources currently utilized None * Additional services required to return to the preadmission environment? Yes * Can the patient safely return to the preadmission environment? Yes * Has this patient been hospitalized within the prior 30 days at any hospital? No External Providers External Provider: [facility] Next Contact Date: Service Request Date: Service Type: Resolution: Reviewer: Comments: Coverage Notice Reviewer: [email or web address] Gurwinder López Notice Issued Date-Time: 02/10/2020 7:20 Notice Type: Patient Choice Letter Notice Delivered To: Patient Relationship to Patient: Dealer Relationship Manager Name: Delivery Method: HAND - Hand Delivered [place] Days: Prior Verbal Notification: Recipient Understood Notice: Yes Recipient Signature: Yes Med Rec Note Co-signed by Attending: Coverage Notice Comment: gabriel for [employer] DP export: 02/10/20 7:14 am Patient Name: VALERIE LYNN Page [id number] at 0827 All edits/amendments must be made on the electronic document DICTATION DATE: 02/10/20825 LONG CHAIN DYEING MACHINE OPERATOR: ODESSA 02/10/20825 RPT#: [id number] DC DATE: STATUS: ADM IN [facility] [address] [place] [address] END OF REPORT
--- NOTE | 2020-02-10 08:55 | NUR ---
DAUGHTER OUT OF ROOM TO GET TEMP RECHECKED AND COME BACK. CL IN REACH. WCTM
--- NOTE | 2020-02-10 11:04 | NUR ---
PT RESTING IN BED. ARM ON PILLOW. DAUGHTER VIC IN ROOM. NO NEEDS AT THIS TIME. WCTM
[2020-02-10 11:38] VITALS: BP 104/48
[2020-02-10] MEDS ORDERED: HYDROCODON-ACE1 EAC2 PO (15:35)
--- NOTE | 2020-02-10 16:11 | NUR ---
IV THERAPY REMOVED FROM LEFT FOREARM WITH TIP INTACT. DRESSING CHANGED TO THE LEFT FOREARM BECAUSE OF BLEEDING. PRESSURE HELD. DISCHARGE INSTRUCTIONS GIVEN. PT VERBALIZED UNDERSTANDING. WENT TO RESTROOM AND WHEELED TO MEET DAUGHTER VIC AT [facility].
--- NOTE | 2020-02-11 13:01 | MORECARE ---
CASE MANAGEMENT DISCHARGE SUMMARY PATIENT: VALERIE YLNN UNIT: [id number] ADM DATE: 02/08/20 AGE: 69 : 48 SEX: F ROOM/BED: D.1213 AUTHOR: ABHIJIT,DOC PHYSICIAN: REFERRING PHYSICIAN: PETER BAEZ MD DATE OF SERVICE: 02/11/20 Discharge Plan Patient Name: VALERIE LYNN Facility: [facility]:[place] : 1950 Planned Disposition: Home with Home Health Anticipated Discharge Date: Discharge Date: 02/10/2020 Expected LOS: Initial Reviewer: [email or web address] Initial Review Date: 02/08/2020 Generated: 02/11/20 2:00 pm Comments DCP- Discharge Planning Updated by [email or web address]: Dixie López on 02/10/20 7:[address] Patient Name: VALERIE LYNN Admission Status: Elective Accout number: [id number] Admission Date: 02-08-2020 : 1950 Admission Diagnosis: Attending: EDELMIRA Current LOS: 2 Anticipated DC Date: Planned Disposition: Home with Home Health Primary Insurance: MEDICARE A & B Discharge Planning Comments: CM met with patient to complete initial dc planning assessment. CM educated patient on the CM role and verbal consent given by patient to complete assessment. Patient lives at home by herself where she is independent with her care. At discharge patient plans to return home and feels this is a safe discharge. Her daughter will be staying with her while she recovers. CM discussed availability of home health, rehab services, and medical equipment. GABRIEL with [facility] . Patient has a walker in her car, wears a CPAP, and has a BSC at home. I will send the referral to [facility]. Patient denied known discharge needs at this time. CM will continue to follow and will assist as needed with dc plans/needs. Clinical Exercise Specialist: Dixie López DCPIA - Discharge Planning Initial Assessment Updated by [email or web address]: Dixie López on 02/10/20 8:12 am * Is the patient Alert and Oriented? Yes * How many steps to enter\exit or inside your home? * PCP [facility] * Pharmacy [facility] * Preadmission Environment Home Alone * ADLs Independent * Equipment Bedside Commode CPAP Walker * List name and contact numbers for known caregivers / representatives who currently or will assist patient after discharge: OLINDA (DAUGHTER) [phone] * Verbal permission to speak to the caregivers and representatives has been obtained from the patient. Yes * Community resources currently utilized None * Additional services required to return to the preadmission environment? Yes * Can the patient safely return to the preadmission environment? Yes * Has this patient been hospitalized within the prior 30 days at any hospital? No Coverage Notice Reviewer: [email or web address] Gurwinder López Notice Issued Date-Time: 02/10/2020 7:20 Notice Type: Patient Choice Letter Notice Delivered To: Patient Relationship to Patient: Baggage Screener Name: Delivery Method: HAND - Hand Delivered [place] Days: Prior Verbal Notification: Recipient Understood Notice: Yes Recipient Signature: Yes Med Rec Note Co-signed by Attending: Coverage Notice Comment: gabriel for [facility] Last DP export: 02/10/20 7:27 am Patient Name: VALERIE LYNN Page [id number] at 1301 All edits/amendments must be made on the electronic document DICTATION DATE: 02/11/20 1300 SUPERINTENDENT STORAGE AREA: ODESSA 02/11/20 1300 RPT#: [id number] DC DATE:02/10/20 STATUS: DIS IN [facility] [address] [place] [address] END OF REPORT
== END 2020-02-10 16:13 | disposition home health service (06) | DRG 470 ==
LOC: D.SDCHOLD 02-01 10:00 → D.M3 02-08 06:30 → D.SDCHOLD 02-08 08:10 → D.M3 02-08 13:26
PROVIDERS: Family Medicine; Orthopaedic Surgery; ADMIT Orthopaedic Surgery; ATTEND Orthopaedic Surgery
PROC: 0SR90JZ Replacement of Right Hip Joint with Synthetic Substitute, Open Approach (ICD-10-PCS; principal; 2020-02-08 08:30)
DX: M16.11 Unilateral primary osteoarthritis, right hip (principal); I10 Essential (primary) hypertension; Z86.711 Personal history of pulmonary embolism; Z79.01 Long term (current) use of anticoagulants; Z85.3 Personal history of malignant neoplasm of breast